=== PATIENT | female | born 1985 | race African-American/Black ===

== ENCOUNTER 2018-06-11 12:52 | Emergency (ER) | payer MEDICAID, OTHER ==
[~2018-06-11] VITALS: Ht 182.9 cm; Wt 91.0 kg
[2018-06-11 12:56] VITALS: BP 128/94
== END 2018-06-11 13:40 | disposition left against medical advice (07) ==
LOC: ER 12:52
DX: R41.82 Altered mental status, unspecified (principal); Z53.21 Procedure and treatment not carried out due to patient leaving prior to being seen by health care provider

== ENCOUNTER 2024-02-17 08:36 | Emergency (ER) | payer SELFPAY ==
[~2024-02-17] VITALS: Ht 177.8 cm; Wt 104.3 kg
[2024-02-17 08:40] VITALS: PULSE 120; O2SAT 100
[2024-02-17 08:45] VITALS: BP 124/73; RESP 18; TEMP 97.9; O2SAT 98
[2024-02-17] MEDS ORDERED: CIPR1DRO2 EACH EAR (11:05)
[2024-02-17] MEDS ORDERED: BO1 TP ×2 (11:05→11:07)
[2024-02-17] MEDS: ACETAMINOPHEN 325MG TABLET PO STA (11:12)
== END 2024-02-17 11:19 | disposition home or self-care (01) ==
LOC: ER 08:48
DX: H60.93 Unspecified otitis externa, bilateral (principal); H61.21 Impacted cerumen, right ear; F14.10 Cocaine abuse, uncomplicated; F12.10 Cannabis abuse, uncomplicated; F31.9 Bipolar disorder, unspecified; Z87.891 Personal history of nicotine dependence
CPT/HCPCS: 99283

== ENCOUNTER 2024-11-14 17:58 | Emergency (ER) | payer OTHER ==
[~2024-11-14] VITALS: Ht 175.3 cm; Wt 77.0 kg
[~2024-11-14 17:58] MED LIST: BO1 TP; CIPR1DRO2 EACH EAR
[2024-11-14 18:02] VITALS: O2SAT 100
[2024-11-14 19:13] LABS: PLATELET 188 x1000/uL (130-400); RED BLOOD CELL COUNT 4.42 mill/uL (4.2-5.4); RED CELL DISTRIBUTION WIDTH 14.8 % (11.6-14.6)
[2024-11-14 19:23] LABS: HCG SCREEN NEGATIVE
[2024-11-14 19:24] LABS: CREATININE 0.9 mg/dL (0.6-1.0); ETHANOL BLOOD < 10 mg/dL (<10); UREA NITROGEN BLOOD 7 mg/dL (9-23)
[2024-11-14 19:50] LABS: *AMPHETAMINES SCREEN URINE NEGATIVE (NEGATIVE); *BARBITURATES SCREEN URINE NEGATIVE (NEGATIVE); *BENZODIAZEPINES SCREEN URINE NEGATIVE (NEGATIVE); *COCAINE SCREEN URINE PRESUMPTIVE POSITIVE (NEGATIVE); CANNABINOID URINE SCREEN PRESUMPTIVE POSITIVE (NEGATIVE); METHADONE URINE SCREEN NEGATIVE (NEGATIVE); OPIATES URINE SCREEN NEGATIVE (NEGATIVE); PHENCYCLIDINE URINE SCREEN PRESUMTIVE POSITIVE (NEGATIVE)
[2024-11-14 19:51] LABS: ECSTASY MDMA SCREEN URINE NEGATIVE (NEGATIVE)
[2024-11-14 20:14] VITALS: BP 119/72; PULSE 71; RESP 16; TEMP 36.8; O2SAT 99
== END 2024-11-14 22:38 | disposition home or self-care (01) ==
LOC: ER 17:58
DX: F19.10 Other psychoactive substance abuse, uncomplicated (principal); J45.909 Unspecified asthma, uncomplicated; F14.90 Cocaine use, unspecified, uncomplicated; F12.90 Cannabis use, unspecified, uncomplicated; Z79.899 Other long term (current) drug therapy
CPT/HCPCS: 36415; 80048; 80305; 80320; 84703; 85027; 87491; 87591; 99283; G0480